=== PATIENT | female | born 1950 | race Caucasian/White ===

== ENCOUNTER → 2024-02-09 | Outpatient (CLI) | payer MEDICARE, OTHER ==
[~2024-02-09] MED LIST: ADV50250 IH; ESOM40CA PO; LOSA-415 PO; MONT-48 PO; NOR5T PO; PIRB14AE4 IH; SYN0.025T PO; SYN0.075T PO; TIOT18CA7 IH
[2024-02-09 12:43] LABS: BASOPHILS # (AUTO) 0.1 X10'3 (0-0.2); BASOPHILS % (AUTO) 0.8 % (0-1); EOSINOPHILS # (AUTO) 0.2 X10'3 (0-0.9); EOSINOPHILS % (AUTO) 2.2 % (0-6); HEMATOCRIT 40.8 % (35.0-45.0); HEMOGLOBIN 13.7 g/dl (12.0-16.0); LYMPHOCYTES % (AUTO) 21.8 % (21-51); MEAN CORPUSCULAR HEMOGLOBIN 31.1 PG (27.0-31.0); MEAN CORPUSCULAR HGB CONC 33.6 g/dL (33.0-36.5); MEAN CORPUSCULAR VOLUME 92.5 FL (78-98); MEAN PLATELET VOLUME 8.1 FL (7.4-10.4); MONOCYTES # (AUTO) 0.9 X10'3 (0-0.9); MONOCYTES % (AUTO) 9.9 % (2-12); NEUTROPHILS # (AUTO) 5.9 X10'3 (1.8-7.7); NEUTROPHILS % (AUTO) 65.3 % (42-75); PLATELET COUNT 209 X10'3 (140-440); RED BLOOD COUNT 4.42 X10'6 (4.20-5.60); RED CELL DISTRIBUTION WIDTH 13.6 % (11.5-14.5)
[2024-02-09 13:03] LABS: ALBUMIN 3.5 G/DL (3.4-5.0); ANION GAP 8 (8-16); BLOOD UREA NITROGEN 40 MG/DL (7-18); BUN/CREATININE RATIO 28.2 (10.0-20.0); CALCIUM 9.1 MG/DL (8.5-10.1); CHLORIDE 105 MMOL/L (99-107); CREATININE 1.42 MG/DL (0.40-0.90); GLUCOSE 107 MG/DL (70-104); SODIUM 141 MMOL/L (135-145); eGFR 36 ML/MIN
[2024-02-09 13:07] LABS: APTT 25 SECONDS (22-32); PROTHROMBIN TIME 10.9 SECONDS (9.0-12.0)
== END | disposition home or self-care (01) ==
LOC: RAD 11:43
PROVIDERS: ATTEND Internal Medicine Cardiovascular Disease
DX: R07.9 Chest pain, unspecified (principal); R42 Dizziness and giddiness; R53.83 Other fatigue
CPT/HCPCS: 36415; 80048; 85025; 85610; 85730

== ENCOUNTER 2024-02-13 06:05 | Day surgery (SDC) | payer MEDICARE, OTHER ==
[2024-02-13] VITALS (10 sets, daily range): BP systolic 92–175; BP diastolic 48–67; PULSE 70–84; RESP 16; TEMP 98; O2SAT 94
[~2024-02-13] VITALS: Ht 165.1 cm; Wt 99.1 kg
[2024-02-13] MEDS ORDERED: METO-395 (06:29)
[2024-02-13] MEDS ORDERED: LEVO125T PO (06:32)
[2024-02-13] MEDS ORDERED: ASPI-1265 PO (06:33)
[2024-02-13] MEDS ORDERED: HYDR12.55 PO (06:33)
[2024-02-13] MEDS ORDERED: CYAN-104 (06:34)
[2024-02-13] MEDS ORDERED: PYRI-3 (06:34)
[2024-02-13] MEDS ORDERED: ROSU10TA2 PO (06:34)
[2024-02-13] MEDS: sodium bicarbonate 1meq/ml inj 150 ML in dextrose 5%-water 1,000 ML IV ONE (07:25)
[2024-02-13] MEDS: LORazepam 0.5 MG tablet PO PRN (07:25)
[2024-02-13] MEDS: diphenhydrAMINE 25mg capsule PO PRN (07:25)
[2024-02-13] MEDS: normal saline 1,000 ML IV SCH (07:25)
[2024-02-13] MEDS ORDERED: verapamil 2.5 mg/ml inj IV ONE (07:31)
[2024-02-13] MEDS ORDERED: midazolam 1 mg/ML 2ml injection ONE (07:32)
[2024-02-13] MEDS ORDERED: iohexol 350 MG/ML 50ML vial IV ONE ×2 (07:32→08:45)
[2024-02-13] MEDS ORDERED: heparin 1,000unit/ml 10ml vial 10 ML ONE (07:32)
[2024-02-13] MEDS ORDERED: fentaNYL/PF 50MCG/1 ML 2ML syringe ONE (07:32)
[2024-02-13] MEDS ORDERED: iohexol 350MG/ML 100ml bottle IV ONE (07:32)
[2024-02-13] MEDS ORDERED: nitroGLYCERIN 500mcg/5mL D5W 5 ML IV ONE (07:33)
[2024-02-13] MEDS ORDERED: LIDOcaine 1% (10mg/ml) 2ml vial ONE (07:43)
[2024-02-13] MEDS ORDERED: LIDOcaine 1% 30ml preserv. free vial ONE (08:32)
[2024-02-13] MEDS ORDERED: hydrALAZINE 20mg/ml inj. IV ONE ×2 (08:41→08:52)
[2024-02-13 08:56] LABS: ISTAT HGB ART 12.6 g/dl (12.0-16.0); ISTAT Hct ART 37 %PCV (35-45); ISTAT O2 SATURATION ARTERIAL 93 % (95-98); ISTAT SOURCE ART
[2024-02-13 11:03] LABS: ISTAT HGB MIX 12.2 g/dl (12.0-16.0); ISTAT Hct MIX 36 %PCV (35-45); ISTAT O2 SATURATION MIX VENOUS 66 % (60-80); ISTAT SOURCE VEN
[2024-02-13] MEDS ORDERED: ondansetron/PF 4mg/2ml inj IV PRN (11:30)
[2024-02-13] MEDS ORDERED: proCHLORperazine 10 MG/2 ml inj IV PRN (11:30)
[2024-02-13] MEDS ORDERED: HYDROcodone/acetaminophen 5mg/325mg tablet PO PRN (11:30)
[2024-02-13] MEDS ORDERED: normal saline 1000ml 1,000 ML IV SCH (11:30)
[2024-02-13] MEDS: HYDROcodone/acetaminophen 10/325mg tab PO PRN (11:34)
== END 2024-02-13 13:15 | disposition home or self-care (01) ==
LOC: SSTAY O 06:05
PROVIDERS: ATTEND Internal Medicine Cardiovascular Disease
DX: R94.39 Abnormal result of other cardiovascular function study (principal); I25.10 Atherosclerotic heart disease of native coronary artery without angina pectoris; I10 Essential (primary) hypertension; E78.5 Hyperlipidemia, unspecified; J44.9 Chronic obstructive pulmonary disease, unspecified
CPT/HCPCS: 76937; 82803; 85014; 93005; 93460; 99152; 99153; A6258; J0360; J1644; J2250; J3010; J3490; J7030; J7070; Q0163; Q9967; A6402; C1725; C1751; C1769; C1894